=== PATIENT | male | born 1995 | race African-American/Black ===

== ENCOUNTER 2016-04-10 18:17 | Emergency (ER) | payer SELFPAY ==
[2016-04-10 18:21] VITALS: TEMP 98.5
[2016-04-10 20:47] LABS: AUTOMATED BASOPHIL 0.1 % (0-2); AUTOMATED LYMPH 5.2 % (17-44); AUTOMATED MONOCYTE 6.4 % (3-10); AUTOMATED NEUTROPHIL 86.3 % (45-76); MPV 8.4 fL (7.4-10.4)
[2016-04-10 20:54] LABS: BLOOD UREA NITROGEN 14 MG/DL (9-20); CALCIUM 9.7 MG/DL (8.4-10.2); CALCULATED OSMOLALITY 274 MOs/Kg (270-290); CHLORIDE 105 mEq/L (98-107); GLUCOSE 91 mg/dL (70-99); SODIUM LEVEL 142 mEq/L (137-146); TOTAL PROTEIN 7.8 G/DL (6.3-8.2)
[2016-04-10 20:59] LABS: LEUKOCYTES/URINE NEG (NEGATIVE); NITRITE/URINE NEG (NEGATIVE); URINE OCCULT BLOOD NEG (NEG/TRACE)
[2016-04-10 21:57] VITALS: BMI 28.7
[2016-04-10] MEDS ORDERED: OXYCODONE HCL 5 MG TABLET PO ONE (22:22)
[2016-04-10] MEDS ORDERED: ONDANSETRON HCL 4 MG ODT TAB PO ONE (22:22)
--- NOTE | 2016-04-10 22:24 | EDPRACDOC ---
- General Information Chief Complaint: Abdominal Pain Stated Complaint: N/V/D, FEVER Time Seen by Provider: 04/10/16 22:21 Information Source: Patient Home Medications: Home Medications Ondansetron [Zofran Odt] 4 mg PO Q6H PRN #20 tab.rapdis 04/10/16 Oxycodone HCl/Acetaminophen [Percocet 5-325 mg Tablet] 1 each PO Q4 #20 tablet 04/10/16 Allergies/Adverse Reactions: Allergies Allergy/AdvReac Type Severity Reaction Status Date / Time No Known Allergies Allergy Verified 04/10/16 20:25 - History of Present Illness Onset: 1500 HPI: PATIENT PRESENTS C/O RUQ ABDOMINAL PAIN ALL DAY. NAUSEA AND VOMITING. PATIENT THINKS SMALL AMOUNT OF DIARRHEA. FAST FOOD LAST MEAL AT 1PM. NO FEVER. NO SX Pain Location: Reports: RUQ Pain Context: Reports: Spontaneous Pain Severity: Mild Pain Quality: Reports: Aching Pain Radiation: Reports: Flank Adult Abdominal History: Denies: Abdominal Surgery Modifying Factors: improves with: Nothing Associated Signs & Symptoms: Reports: Nausea, Vomiting Oral Intake: Normal Urinary Output: Normal ED Past Medical History - History Reviewed Yes Nurses notes reviewed and agree except as marked Travel Outside of [place] in the Last 3 Months?: No - Patient Medical History Cardiac History: Reports: Hypertension Respiratory History: Reports: Asthma Psychological History: Denies: Depression - Social Medical History Smoking Status: Current some day smoker Social History: Reports: Marijuana Use Lives With: Family Lives In: Home EDM Review of Systems - Review of Systems ROS Negative Except as Marked: Yes All systems reviewed and were negative except as marked Constitutional: No Symptoms Reported. negative: Fever, Chills, Weakness, Fatigue, Loss of Appetite Eyes: No Symptoms Reported. negative: Redness, Blurred Vision, Double Vision, Discharge, Pain, Light Sensitive, Photophobia Ears: No Symptoms Reported. negative: Pain, Hearing Loss, Drainage, Ear Pulling Throat: No Symptoms Reported. negative: Pain, Swelling Nose: No Symptoms Reported. negative: Congestion, Bleeding, Discharge, Injection, Swelling, Deformity, Ecchymosis, Tender, Abrasion, Laceration Mouth: No Symptoms Reported. negative: Pain, Drooling Respiratory: No Symptoms Reported. negative: Cough, Brassy Cough, Barky Cough, Shortness of Breath, Wheezing, Hemoptysis Cardiovascular: No Symptoms Reported. negative: Chest Pain, Palpitations, Syncope, Edema, Orthopnea, PND, Skin Mottling, Cyanosis Gastrointestinal: Nausea, Pain, Vomiting. negative: Constipation, Diarrhea, Formula Intolerance, Melena Genitourinary: No Symptoms Reported. negative: Dysuria, Hematuria, Frequency, Discharge, Bleeding, Testicular Pain, Neurological: No Symptoms Reported. negative: Headache, Dizziness, Seizure, Numbness, Weakness, Speech Difficulty, Gait Difficulty Musculoskeletal: No Symptoms Reported. negative: Neck, Chestwall, Ribs, Back, Shoulder, Arm, Elbow, Forearm, Wrist, Hand, Pelvis, Hip, Femur, Knee, Leg, Ankle , Foot Integumentary: No Symptoms Reported. negative: Itching, Rash, Bruising, Wound Allergic/Immunologic: No Symptoms Reported. negative: Hives, Itching Hematologic: No Symptoms Reported. negative: Lymphadenopathy, Easy Bruising, Easy Bleeding Endocrine: No Symptoms Reported. negative: Weight Gain, Weight Loss Psychiatric: No Symptoms Reported. negative: Anxiety, Depression, Hallucinations, Insomnia, Suicidal - Physical Exam Constitutional: Alert (Awake), No apparent distress Oriented to: Time, Person, Place Last recorded Vital Signs: Last Vital Signs Temp 98.5 F 04/10/16 18:21 Pulse 87 04/10/16 22:48 Resp 18 04/10/16 22:48 BP 104/65 04/10/16 22:48 Pulse Ox 96 04/10/16 22:48 Oxygen Pulse Oxygen Saturation 96 O2 Device Room Air Oxygen Flow Rate Fraction of Inspired Oxygen ( FIO2) - HEENT Head: Normal ( normocephalic) Eye Exam: Normal (PERRL, EOMI, Sclera white) Oropharynx: Normal (Pharynx:Moist without exudate,Gums-no swelling) Tympanic Membrane: Normal ENT EAC: Normal TMJ: Normal Nose: No Symptoms Reported (septum midline) Neck: Normal (FROM, trachea at midline) - Respiratory/Cardiovascular Respiratory: Normal - CTA (BBS clear to auscultation without adventitious sounds ) Cardiovascular: Normal (RRR without murmur, gallop or rub) - GI Auscultation: Normal (NABS) Palpation: Normal (Soft,No rebound or guarding, non distended) Tenderness: Non tender Wright's Sign: Negative - Musculoskeletal Back: Normal (Non-Tender) Extremities: Normal (Normal tone, Pulses 2+ No cyanosis or edema, FROM) - Integumentary Skin: Normal, Warm, Dry Lymphatics: Normal (no adenopathy) - Neurologic Memory Impaired: Normal Motor Function: Normal (Normal tone, Pulses 2+ No cyanosis or edema, FROM) Cranial Nerve: Normal (CN II-X11 intact sensation, strength 5/5) Cerebellar: Normal Mood Description: Normal Perception: Normal - Results 04/10/16 20:30 04/10/16 20:30 WBC 9.9 xk/uL (3.8-10.8) 04/10/16 20:30 RBC 4.94 xM/uL (4.70-6.10) 04/10/16 20:30 Hgb 15.6 g/dL (14.0-18.0) 04/10/16 20:30 Hct 44.9 % (42-52) 04/10/16 20:30 MCV 91 fL (80-94) 04/10/16 20:30 MCH 31.6 pg (27-32) 04/10/16 20:30 MCHC 34.8 g/dl (33-36) 04/10/16 20:30 RDW 12.8 % (11.5-14.5) 04/10/16 20:30 Plt Count 187 xk/uL (130-400) 04/10/16 20:30 MPV 8.4 fL (7.4-10.4) 04/10/16 20:30 Neut % (Auto) 86.3 % (45-76) H 04/10/16 20:30 Lymph % (Auto) 5.2 % (17-44) L 04/10/16 20:30 Wilkinson % (Auto) 6.4 % (3-10) 04/10/16 20:30 Eos % (Auto) 2.0 % (0-5) 04/10/16 20:30 Baso % (Auto) 0.1 % (0-2) 04/10/16 20:30 Absolute Neuts (auto) 8.51 xk/uL (1.7-8.2) H 04/10/16 20:30 Absolute Lymphs (auto) 0.50 xk/uL (0.65-4.75) L 04/10/16 20:30 Sodium 142 mEq/L (137-146) 04/10/16 20:30 Potassium 5.0 mEq/L (3.5-5.1) 04/10/16 20:30 Chloride 105 mEq/L (98-107) 04/10/16 20:30 Carbon Dioxide 27 mMOL/L (22-33) 04/10/16 20:30 Anion Gap 15 mEq/L (8-16) 04/10/16 20:30 BUN 14 MG/DL (9-20) 04/10/16 20:30 Creatinine 0.90 MG/DL (0.66-1.25) 04/10/16 20:30 Estimated GFR (MDRD) > 60 mL/min (>=60) 04/10/16 20:30 Glucose 91 mg/dL (70-99) 04/10/16 20:30 Calculated Osmolality 274 MOs/Kg (270-290) 04/10/16 20:30 Calcium 9.7 MG/DL (8.4-10.2) 04/10/16 20:30 Total Bilirubin 2.2 MG/DL (0.2-1.3) H 04/10/16 20:30 AST 33 IU/L (17-59) 04/10/16 20:30 ALT 36 IU/L (21-72) 04/10/16 20:30 Alkaline Phosphatase 88 IU/L (38-126) 04/10/16 20:30 Total Protein 7.8 G/DL (6.3-8.2) 04/10/16 20:30 Albumin 4.7 G/DL (3.5-5.0) 04/10/16 20:30 Lipase 22 U/L (23-300) L 04/10/16 20:30 Urine Color Yellow 04/10/16 20:30 Urine Clarity Sl cldy 04/10/16 20:30 Urine pH 8.0 (5.0-8.0) 04/10/16 20:30 Ur Specific Malcolm 1.015 (1.003-1.035) 04/10/16 20:30 Urine Protein 1+ (NEG/TRACE) H 04/10/16 20:30 Urine Glucose (UA) Neg (NEGATIVE) 04/10/16 20:30 Urine Ketones 2+ (NEGATIVE) H 04/10/16 20:30 Urine Occult Blood Neg (NEG/TRACE) 04/10/16 20:30 Urine Nitrite Neg (NEGATIVE) 04/10/16 20:30 Urine Bilirubin Neg (NEGATIVE) 04/10/16 20:30 Urine Urobilinogen 2 MG/DL (0-1) H 04/10/16 20:30 Ur Leukocyte Esterase Neg (NEGATIVE) 04/10/16 20:30 Urine Mucus Large (NEG/OCC) 04/10/16 20:30 Lab Results 04/10/16 04/10/16 04/10/16 20:30 20:30 20:30 WBC 9.9 RBC 4.94 Hgb 15.6 Hct 44.9 MCV 91 MCH 31.6 MCHC 34.8 RDW 12.8 Plt Count 187 MPV 8.4 Neut % (Auto) 86.3 H Lymph % (Auto) 5.2 L Wilkinson % (Auto) 6.4 Eos % (Auto) 2.0 Baso % (Auto) 0.1 Absolute Neuts (auto) 8.51 H Absolute Lymphs (auto) 0.50 L Sodium 142 Potassium 5.0 Chloride 105 Carbon Dioxide 27 Anion Gap 15 BUN 14 Creatinine 0.90 Estimated GFR (MDRD) > 60 Glucose 91 Calculated Osmolality 274 Calcium 9.7 Total Bilirubin 2.2 H AST 33 ALT 36 Alkaline Phosphatase 88 Total Protein 7.8 Albumin 4.7 Lipase 22 L Urine Color Yellow Urine Clarity Sl cldy Urine pH 8.0 Ur Specific Malcolm 1.015 Urine Protein 1+ H Urine Glucose (UA) Neg Urine Ketones 2+ H Urine Occult Blood Neg Urine Nitrite Neg Urine Bilirubin Neg Urine Urobilinogen 2 H Ur Leukocyte Esterase Neg Urine Mucus Large Decision Time to Discharge: 23:36 - Departure Yes I personally saw and evaluated the patient. Disposition: Home Condition: Good Final Diagnosis: Biliary colic symptom, Abdominal pain Instructions: Non-pharmacological Pain Management Therapies for Adults (GEN), Abdominal Pain (ED), Biliary Colic (ED) Education/Counseling Given To: Patient Education/Counseling Given Regarding: Diagnosis, Treatment, Prognosis, Follow Up Referrals: None,No Provider [Primary Care Provider] - One Week Davion Bashir MD [Staff Physician] - One Week Prescriptions: New Ondansetron [Zofran Odt] 4 mg PO Q6H PRN #20 tab.rapdis PRN Reason: Nausea/Vomiting Oxycodone HCl/Acetaminophen [Percocet 5-325 mg Tablet] 1 each PO Q4 #20 tablet
[2016-04-10 22:49] VITALS: BP 104/65; PULSE 87
--- NOTE | 2016-04-10 23:00 | DIRPT ---
CLINICAL DATA: Right upper quadrant pain with nausea and vomiting. EXAM: DG ABDOMEN ACUTE W/ 1V CHEST COMPARISON: 03/06/2015 FINDINGS: There is no evidence of dilated bowel loops or free intraperitoneal air. No radiopaque calculi or other significant radiographic abnormality is seen. Heart size and mediastinal contours are within normal limits. Both lungs are clear. IMPRESSION: Negative abdominal radiographs. No acute cardiopulmonary disease. Electronically Signed By: Derick Haque M.D. On: 04/10/2016 22:57
[2016-04-10] MEDS ORDERED: KETOROLAC TROMETHAMINE 10 MG TAB PO ONE (23:25)
--- NOTE | 2016-04-10 23:38 | DIRPT ---
CLINICAL DATA: Right upper quadrant abdominal pain for 8 hours EXAM: US ABDOMEN LIMITED - RIGHT UPPER QUADRANT COMPARISON: None. FINDINGS: Gallbladder: No gallstones or wall thickening visualized. No sonographic Wright sign noted by duct cleaner. Common bile duct: Diameter: 3 mm Liver: No focal lesion identified. Within normal limits in parenchymal echogenicity. Borderline echogenic right kidney cortex. IMPRESSION: Negative. No explanation for abdominal pain. Electronically Signed By: Derick Haque M.D. On: 04/10/2016 23:35
== END 2016-04-11 00:03 | disposition home or self-care (01) ==
LOC: ED 18:17
DX: K80.50 Calculus of bile duct without cholangitis or cholecystitis without obstruction (principal)
CPT/HCPCS: 36415; 74022; 76705; 80053; 81001; 83690; 85025; 99283; J3490